=== PATIENT | female | born 1965 | race Caucasian/White ===

== ENCOUNTER 2021-11-22 04:19 | Emergency (ER) | payer OTHER ==
[~2021-11-22] VITALS: Ht 160 cm; Wt 74.8 kg
--- NOTE | 2021-11-22 04:19 | NUR ---
patient brought to bed 12 by [facility]
[2021-11-22 04:32] VITALS: BP 152/92
--- NOTE | 2021-11-22 04:44 | NUR ---
patient ambulated to the bathroom with a steady gait along with collection of urine
--- NOTE | 2021-11-22 05:08 | NUR ---
patient to xr via w/c
[2021-11-22] MEDS ORDERED: IBUPROFEN 800 MG TAB PO ONE (05:30)
[2021-11-22] MEDS ORDERED: IBUP-1801 PO ×2 (05:31→06:53)
[2021-11-22 06:50] VITALS: BP 131/70
== END 2021-11-22 06:50 | disposition home or self-care (01) ==
LOC: MED 04:19
DX: M54.50 Low back pain, unspecified (principal); V49.9XXA Car occupant (driver) (passenger) injured in unspecified traffic accident, initial encounter; Y93.89 Activity, other specified; Y92.410 Unspecified street and highway as the place of occurrence of the external cause; Y99.8 Other external cause status
CPT/HCPCS: 72080; 99283